=== PATIENT | female | born 1965 | race Caucasian/White ===

== ENCOUNTER 2023-07-07 10:57 | Outpatient (CLI) | payer OTHER ==
[~2023-07-07 10:57] MED LIST: ANUSOL-HC25 MG RC; METOPROLOL SUC100 MG
== END 2023-07-07 11:10 | disposition home or self-care (01) ==
LOC: SONOGRAMA 10:57
PROVIDERS: ATTEND Surgery
DX: K22.2 Esophageal obstruction (principal)

== ENCOUNTER 2023-10-14 08:25 | Emergency (ER) | payer OTHER ==
[~2023-10-14] VITALS: Ht 167.6 cm; Wt 86.2 kg
[~2023-10-14 08:25] MED LIST changes: +SIMVAST PO
[2023-10-14] MEDS ORDERED: PRAVASTATIN SOD40 MG PO (08:44)
[2023-10-14] MEDS ORDERED: COZAAR25 MG PO (08:44)
[2023-10-14] MEDS ORDERED: TOPROL XL25 M1 PO (08:45)
[2023-10-14 10:36] LABS: MEAN CELL VOLUME 79.3 fL (80.00-100.00); MEAN CORPUSCULAR HEMOGLOBIN 27.2 pg (27.00-32.0); MEAN CORPUSCULAR HGB CONC 34.3 g/dl (32.0-36.0); PLATELET COUNT 272 K/uL (150-450); RED BLOOD COUNT 4.79 M/uL (4.00-6.00); RED CELL DISTRIBUTION WIDTH 13.7 % (11.5-14.5)
[2023-10-14 11:12] LABS: CALCIUM 8.7 mg/dL (8.5-10.1); CREATININE SERUM 0.57 mg/dL (0.55-1.02); GFR 109.32; POTASSIUM 4.04 mEq/L (3.5-5.1)
[2023-10-14] MEDS ORDERED: MUCINEX DM ER1 EACH PO (11:50)
[2023-10-14] MEDS ORDERED: SINGULAIR10 MG PO (11:50)
[2023-10-14] MEDS ORDERED: ZYRTEC10 MG PO (11:50)
[2023-10-14] MEDS ORDERED: PEPCID AC20 MG PO (11:50)
[2023-10-14] MEDS ORDERED: AYR SALINE50 ML NASAL (11:50)
== END 2023-10-14 12:42 | disposition home or self-care (01) ==
LOC: ER 08:25
PROVIDERS: General Practice
DX: J06.9 Acute upper respiratory infection, unspecified (principal); I10 Essential (primary) hypertension; Z20.822 Contact with and (suspected) exposure to COVID-19